=== PATIENT | female | born 1960 | race Asian ===

== ENCOUNTER → 2021-08-23 | Outpatient (CLI) | payer OTHER | END | disposition home or self-care (01) | LOC: RADMN 14:07 | PROVIDERS: ATTEND Internal Medicine Medical Oncology | DX: R91.8 Other nonspecific abnormal finding of lung field (principal); R06.00 Dyspnea, unspecified; C76.0 Malignant neoplasm of head, face and neck | CPT/HCPCS: 71045 ==